=== PATIENT | male | born 1995 | race Two or more races ===

== ENCOUNTER 2024-11-28 00:15 | Emergency (ER) | payer OTHER ==
[~2024-11-28] VITALS: Ht 180.3 cm; Wt 81.8 kg
[2024-11-28 00:17] VITALS: TEMP 97.9
[2024-11-28] MEDS: TraMADol HCL 50 MG TABLET PO ONE (01:50)
[2024-11-28 01:51] VITALS: BP 136/77; PULSE 79; RESP 15; O2SAT 100
[2024-11-28] MEDS ORDERED: TRAM50TA5 PO (01:54)
== END 2024-11-28 02:03 | disposition home or self-care (01) ==
LOC: EMS 00:18
DX: M25.511 Pain in right shoulder (principal)
CPT/HCPCS: 99284; 73000-TC; 73030-TC; Z7502; Z7610